=== PATIENT | female | born 1960 | race African-American/Black ===

== ENCOUNTER 2017-03-08 05:41 | Emergency (ER) | payer OTHER, MEDICARE ==
[2017-03-08 05:50] VITALS: BP 134/89
--- NOTE | 2017-03-08 06:52 | ER Document Report ---
ED GI/ - General Mode of Arrival: Ambulatory Information source: Patient TRAVEL OUTSIDE OF THE [place] IN LAST 30 DAYS: No - HPI Patient complains to provider of: Diarrhea Associated symptoms: Other - See above <PHILL DOS SANTOS - Last Filed: 03/08/17 06:52> <DYLAN MUNOZ - Last Filed: 03/08/17 11:19> - General Chief Complaint: Diarrhea Stated Complaint: DIARRHEA Notes: Patient is a 56 year old female, with a past medical history including diabetes , who presents to the emergency department complaining of diarrhea. Patient reports that she started having diarrhea back in January and was seen by her PCP who switched her off her prescription of Meloxicam onto something else that she can't recall and the diarrhea resolved, this past week it has started up again and is accompanied by abdominal cramping. Patient reports that this occurs after she eats. Patient was told that she has mild anemia and is taking an Iron supplement. Patient is scheduled to see a GI specialist in March. PCP: [place] Structural Technician: Dr. Green ([facility]) (PHILL DOS SANTOS) - Related Data Allergies/Adverse Reactions: No Known Allergies Allergy (Verified 01/12/16 13:37) Past Medical History - General Information source: Patient - Social History Smoking Status: Never Smoker Frequency of alcohol use: None Family History: Reviewed & Not Pertinent Patient has suicidal ideation: No Patient has homicidal ideation: No - Past Medical History Cardiac Medical History: Reports: Hx Hypercholesterolemia, Hx Hypertension Endocrine Medical History: Reports: Hx Diabetes Mellitus Type 2 Past Surgical History: Reports: Hx Hysterectomy, Hx Orthopedic Surgery - Bilateral knee, back - Immunizations Hx Diphtheria, Pertussis, Tetanus Vaccination: - Unknown <PHILL DOS SANTOS - Last Filed: 03/08/17 06:52> Review of Systems - Review of Systems Constitutional: No symptoms reported EENT: No symptoms reported Cardiovascular: No symptoms reported Respiratory: No symptoms reported Gastrointestinal: See HPI, Abdominal pain, Diarrhea Genitourinary: No symptoms reported Female Genitourinary: No symptoms reported Musculoskeletal: No symptoms reported Skin: No symptoms reported Hematologic/Lymphatic: No symptoms reported Neurological/Psychological: No symptoms reported -: Yes All other systems reviewed and negative <PHILL DOS SANTOS - Last Filed: 03/08/17 06:52> Physical Exam - Vital signs Interpretation: Normal - General General appearance: Appears well, Alert - HEENT Head: Normocephalic, Atraumatic - Respiratory Respiratory status: No respiratory distress Chest status: Nontender Breath sounds: Normal Chest palpation: Normal - Cardiovascular Rhythm: Regular Heart sounds: Normal auscultation Murmur: No - Abdominal Inspection: Obese Distension: No distension Bowel sounds: Normal Tenderness: Nontender Organomegaly: No organomegaly - Extremities General upper extremity: Normal inspection General lower extremity: Normal inspection - Neurological Neuro grossly intact: Yes Cognition: Normal Orientation: AAOx4 [place] Coma Scale Eye Opening: Spontaneous Kiefer Coma Scale Verbal: Oriented [place] Coma Scale Motor: Obeys Commands Kiefer Coma Scale Total: 15 Speech: Normal - Psychological Associated symptoms: Normal affect, Normal mood - Skin Skin Temperature: Warm Skin Moisture: Dry Skin Color: Normal <PHILL DOS SANTOS - Last Filed: 03/08/17 06:52> Course <PHILL DOS SANTOS - Last Filed: 03/08/17 06:52> - Laboratory Result Diagrams: 03/08/17 06:50 03/08/17 06:50 <DYLAN MUNOZ - Last Filed: 03/08/17 11:19> - Re-evaluation Re-evalutation: 03/08/17 09:15 At this point the patient is still not had any diarrhea. She will be given a meal to see if it provokes the diarrhea for a specimen. 03/08/17 11:15 The patient has had no diarrhea. She has occasional cramps. (DYLAN MUNOZ) - Vital Signs Vital signs: Temp Pulse Resp BP Pulse Ox 98.3 F 104 H 16 134/89 H 97 03/08/17 05:47 03/08/17 05:47 03/08/17 06:49 03/08/17 05:47 03/08/17 06:49 - Laboratory Laboratory results interpreted by me: 03/08/17 03/08/17 06:50 06:50 WBC 11.4 H Hgb 11.6 L MCV 76 L MCH 24.4 L RDW 15.8 H Potassium 2.7 L* Glucose 129 H Discharge <PHILL DOS SANTOS - Last Filed: 03/08/17 06:52> <DYLAN MUNOZ - Last Filed: 03/08/17 11:19> - Discharge Clinical Impression: Abdominal cramps Diarrhea Qualifiers: Diarrhea type: unspecified type Qualified Code(s): R19.7 - Diarrhea, unspecified Condition: Stable Disposition: HOME, SELF-CARE Additional Instructions: Abdominal Pain There are many causes of abdominal pain. Pain can mean a serious problem requiring surgery (such as appendicitis). It can also be an innocent problem that goes away on its own (such as a viral infection). Often, time must pass to determine the cause of pain. The physician does not feel that hospitalization is necessary, at present. Things may change within the next 24 hours. Call the doctor or come back for re- examination if any problems occur, such as: (1) Pain that becomes more severe, steady, or becomes concentrated in one specific area. Also, pain that is more severe with movement or coughing. (2) Vomiting that persists or becomes more frequent. (3) Blood in the vomitus, urine, or bowel movements. Blood in the stool may have a tarry or black appearance. (4) Shaking chills or fever greater than 100 degrees F. (5) The abdomen becomes more distended or swollen. (6) Bowel movements cease. (7) Failure to improve as expected. Diarrhea Diarrhea means frequent, watery stools. There are many causes. Any problem that keeps the intestinal tract from absorbing water from the stool can lead to diarrhea. A sudden new diarrhea problem is usually caused by a virus, food sensitivity, toxic bacteria, or drugs. In this case, we expect the problem to go away soon. Testing is done only if you seem seriously ill from the diarrhea. If you have chronic diarrhea, or diarrhea that keeps coming back, we need to find out why. Chronic diarrhea can be due to inflammation of the bowels such as Crohn's disease or ulcerative colitis, food sensitivity such as intolerance to lactose or wheat protein, irritable bowel syndrome, and other problems. If your diarrhea is a significant problem but it's not clear why you have it, we' ll refer you to a specialist for further testing. During an episode of diarrhea, drink small amounts (two to six ounces) of clear liquids (soft drinks, sport drinks, herb teas, broth, etc). Take fluids frequently to prevent dehydration. It's usually not a problem to take mild anti- diarrhea medication such as Kaopectate or Pepto-Bismol. As the diarrhea eases, advance to small amounts of bland food (mashed potato, toast) for 24 hours. Call the physician if blood appears in your vomit or stool, if vomiting lasts longer than 24 hours, if the abdominal pain worsens or becomes localized to one area, if you develop high fever, or if you become lightheaded and weak. TAKE THE MEDICATION PRESCRIBED FOR ABDOMINAL CRAMPS. FOLLOW UP WITH YOUR DOCTOR IF NOT IMPROVING. Prescriptions: Dicyclomine HCl [Bentyl 20 mg Tablet] 20 mg PO Q6 PRN #20 tablet PRN Reason: Scribe Attestation: 03/08/17 11:19 I personally performed the services described in the documentation, reviewed and edited the documentation which was dictated to the scribe in my presence, and it accurately records my words and actions. (DYLAN MUNOZ) [employer]iae Documentation - Scribe Written by Nik:: nik Ortiz, 03/06/17, [id number] acting as scribe for :: Steve <PHILL DOS SANTOS - Last Filed: 03/08/17 06:52>
[2017-03-08] MEDS ORDERED: LOPERAMIDE HCL 2 MG CAPSULE PO ONE (06:54)
[2017-03-08 06:59] LABS: ABSOLUTE BASOPHILS # (AUTO) 0.1 10^3/uL (0.0-0.2); ABSOLUTE EOSINOPHILS # (AUTO) 0.2 10^3/uL (0.0-0.6); ABSOLUTE LYMPHOCYTES (AUTO) 2.6 10^3/uL (0.5-4.7); ABSOLUTE MONOCYTES (AUTO) 0.6 10^3/uL (0.1-1.4); ABSOLUTE NEUT (AUTO) 7.8 10^3/uL (1.7-8.2); BASOPHILS % (AUTO) 0.8 % (0-2); EOSINOPHILS % (AUTO) 1.5 % (0-6); HEMATOCRIT 36.1 % (36.0-47.0); HEMOGLOBIN 11.6 g/dL (12.0-15.5); HGB HCT DIFFERENCE -1.3; LYMPHOCYTES % (AUTO) 23.1 % (13-45); MEAN CORPUSCULAR HEMOGLOBIN 24.4 pg (27.0-33.4); MEAN CORPUSCULAR HGB CONC 32.3 g/dL (32.0-36.0); MEAN CORPUSCULAR VOLUME 76 fl (80-97); MONOCYTES % (AUTO) 5.7 % (3-13); RED BLOOD COUNT 4.77 10^6/uL (3.72-5.28); RED CELL DISTRIBUTION WIDTH 15.8 % (11.5-14.0); SEGMENTED NEUTROPHILS % (AUTO) 68.9 % (42-78); WHITE BLOOD COUNT 11.4 10^3/uL (4.0-10.5)
[2017-03-08 07:14] LABS: ALANINE AMINOTRANSFERASE 31 U/L (9-52); ALBUMIN 4.2 g/dL (3.5-5.0); ALKALINE PHOSPHATASE 113 U/L (38-126); ANION GAP 14 (5-19); ASPARTATE AMINO TRANSFERASE 21 U/L (14-36); BILIRUBIN,DIRECT 0.3 mg/dL (0.0-0.4); BILIRUBIN,TOTAL 0.7 mg/dL (0.2-1.3); BLOOD UREA NITROGEN 8 mg/dL (7-20); CALCIUM 9.9 mg/dL (8.4-10.2); CARBON DIOXIDE 30 mmol/L (22-30); CHLORIDE 98 mmol/L (98-107); CREATININE RESULT 0.63 mg/dL (0.52-1.25); GLUCOSE 129 mg/dL (75-110); SODIUM 141.6 mmol/L (137-145); TOTAL PROTEIN 7.7 g/dL (6.3-8.2)
[2017-03-08] MEDS ORDERED: POTASSIUM CHLORIDE 10 MEQ TABLET.SA PO ONE (07:23)
[2017-03-08 07:31] LABS: POTASSIUM 2.7 mmol/L (3.6-5.0)
== END 2017-03-08 12:02 | disposition home or self-care (01) ==
LOC: ER 05:41
DX: R10.9 Unspecified abdominal pain (principal); R19.7 Diarrhea, unspecified; E66.9 Obesity, unspecified; E78.00 Pure hypercholesterolemia, unspecified; I10 Essential (primary) hypertension; E11.9 Type 2 diabetes mellitus without complications; Z90.710 Acquired absence of both cervix and uterus
CPT/HCPCS: 36415; 80053; 85025; 99284